=== PATIENT | male | born 1985 | race Caucasian/White ===

== ENCOUNTER 2018-04-23 03:36 | Emergency (ER) | payer OTHER, SELFPAY ==
--- NOTE | 2018-04-23 03:43 | ED.SOB ---
HPI - SOB/Dyspnea General Chief Complaint: Shortness of Breath/Dyspnea Stated Complaint: difficulty breathing, chest pain Time Seen by Provider: 04/23/18 03:39 Source: patient Mode of arrival: ambulatory Limitations: no limitations History of Present Illness Patient presents to the emergency department today with a chief complaint some difficulty with shortness of breath and chest pain off and on for the past week or so. He complains that the pain radiates into his left arm. He is not dizzy nor weak or lightheaded. He denies fever or chills. He denies provocation, palliation of his discomfort. Was recently seen and evaluated at the walk-in clinic for an upper respiratory infection and prescribed azithromycin. He was largely doing better and then develops symptoms again over the day or 2. MD Complaint: shortness of breath, cough, chest pain and anxiety Onset (ago): day(s) Context: recent illness Severity: moderate Consistency/Duration: constant Relieving factors: nothing Exacerbating factors: nothing Related Data Previous Rx's Medication Instructions Recorded azithromycin 250 mg tablet See Label Instructions PO .COMPLEX 04/16/18 #6 tab methylprednisolone 4 mg tablets in See Label Instructions PO PER PKG 04/16/18 a dose pack DIR #21 each Allergies Allergy/AdvReac Type Severity Reaction Status Date / Time No Known Drug Allergies Allergy Verified 04/23/18 04:02 Review of Systems Review of Systems All systems reviewed & are unremarkable except as noted in HPI and below Constitutional Denies chills, Denies fever(s), Denies lethargy and Denies weakness Eyes Denies change in vision, Denies eye discharge, Denies irritation and Denies loss of vision ENT Ears, Nose, Mouth, and Throat: Denies change in voice, Denies neck pain and Denies sore throat Cardiovascular Reports chest pain, Reports rapid heart rate, Denies irregular heart rhythm, Denies lightheadedness, Denies palpitations, Denies dyspnea, Denies dyspnea on exertion and Denies orthopnea Respiratory Denies cough, Denies dyspnea, Denies dyspnea on exertion and Denies wheezing Gastrointestinal Gastrointestinal: Denies abdominal pain, Denies change in bowel habits, Denies diarrhea, Denies nausea and Denies vomiting Musculoskeletal Denies neck pain Neurologic Denies loss of vision and Denies weakness Endocrine Denies palpitations Allergic/Immunologic Denies wheezing [facility] Social History (Reviewed 05/23/18 @ 04:05 by AAKASH Gillespie Smoking Status: Current every day smoker Exam Initial Vital Signs Initial Vital Signs: Vital Signs Temperature 97.8 F 04/23/18 03:50 Pulse Rate 120 H 04/23/18 03:50 Respiratory Rate 18 04/23/18 03:50 Blood Pressure 155/96 H 04/23/18 03:50 Pulse Oximetry 100 04/23/18 03:50 Const General: cooperative, well developed and anxious Nutritional Appearance: well nourished Orientation: alert, awake, oriented x3 and not confused HENMT Head: normocephalic and atraumatic Ears: external ears normal and TM's normal bilaterally Nose: external nose normal and No nasal discharge Face and sinus: sinuses nontender, face symmetric, no sinus tenderness and No dry mucous membranes Mouth: oral mucosae normal and moist mucous membranes Teeth and gingiva: dentition normal Throat: tonsils normal and uvula midline Eyes General: appearance normal, both eyes and all related structures Eyelids: eyelids normal Conjunctivae: conjunctivae normal Sclera: sclerae normal Pupils: PERRL EOM: EOM intact bilaterally Chest Chest: normal inspection of the chest Resp Effort & Inspection: normal respiratory effort, able to speak in complete sentences, no respiratory distress and no use of accessory muscles Auscultation: clear to auscultation bilaterally, no rales, no rhonchi and no wheezes Cardio Rate: tachycardic Rhythm: regular rhythm Heart Sounds: no click, no gallops, no murmurs and no rubs Pulses: normal peripheral pulses GI Inspection: non-distended Palpation: soft, no hepatosplenomegaly, No guarding, No pulsatile mass and No tender Auscultation: normal bowel sounds Back/Spine/Pelvis Back: No CVA tenderness Cervical Spine: cervical ROM normal and No pain with cervical ROM Thoracic/Lumbar Spine: thoracic and lumbar spine normal to inspection Skin General: no rashes or lesions noted, No jaundice and No petechiae Neuro General: alert, oriented x3, gait normal and no focal motor deficits Speech: speech normal Course Orders Ordered: ED Orders 04/23/18 EKG-12 Lead Stat 04/23/18 03:45 Complete Blood Count AUTO DIFF Stat Comprehensive Metabolic Panel Stat D Dimer Stat Lipase Stat Troponin with CK Cardiac Panel Stat 04/23/18 04:00 XR chest 1V Stat Sodium Chloride (Normal Saline 0.9%) 1,000 mls @ 1,000 mls/hr IV CONT HUMERA Last Admin: 04/23/18 04:06 Dose: 1,000 mls/hr Reevaluation(s) Reevaluation #1: HR down to low 90s already Time: 04:27 Vital Signs - 8 hr 04/23/18 03:50 Temperature 97.8 F Pulse Rate 120 H Respiratory Rate 18 Blood Pressure 155/96 H Pulse Oximetry 100 MDM - SOB/Dyspnea Differential Diagnosis Likely acute exacerbation of chronic obstructive airways disease, congestive heart failure, community acquired pneumonia, asthma with exacerbation and pulmonary embolism Medical Records Attestation: I reviewed the patient's medical records. Lab Data Attestation: I reviewed the patient's lab results. Result diagrams: 04/23/18 03:45 04/23/18 03:45 Lab Results 04/23/18 04/23/18 04/23/18 Range/Units 03:45 03:45 03:45 WBC 9.3 (4.5-11.0) X10^3/uL RBC 5.08 (4.5-5.9) X10^6/uL Hgb 15.7 (13.5-17.5) g/dL Hct 44.9 (41-53) % MCV 88.4 (80-100) fL MCH 30.8 (26-34) PG MCHC 34.9 (30-36) % RDW 13.0 (11.6-14.8) % Plt Count 237 (150-400) X10^3/uL Neut % (Auto) 43.6 L (50-75) % Lymph % (Auto) 43.5 H (25-40) % [place] % (Auto) 8.7 (3-14) % Eos % (Auto) 3.4 (2-4) % Baso % (Auto) 0.8 (0-2) % Neut # (Auto) 4000 (0391-8463) /uL D-Dimer < 200 (<231) ng/mL Sodium 144 (137-145) mmol/L Potassium 3.7 (3.4-5.1) mmol/L Chloride 104.0 (98-107) mmol/L Carbon Dioxide 25.0 (22-32) mmol/L BUN 12.0 (9-20) mg/dL Creatinine 0.70 (0.66-1.25) mg/dL Estimated GFR > 60.0 (>60) mL/min BUN/Creatinine Ratio 17.1 (6-22) Glucose 97 (70-100) mg/dL Calcium 9.6 (8.4-10.2) mg/dL Total Bilirubin 0.5 (0.2-1.3) mg/dL AST 23 (17-59) IU/L ALT 30 (21-72) IU/L Alkaline Phosphatase 65 (38-126) U/L Total Creatine Kinase 78 (55-170) U/L Troponin I < 0.012 (0.01-0.034) ng/mL Total Protein 8.6 H (6.3-8.2) g/dL Albumin 4.7 (3.5-5.0) g/dL Globulin 3.9 (1.7-4.1) g/dL Albumin/Globulin Ratio 1.2 (1.0-2.8) Lipase 166 (23-300) U/L Imaging Data Chest x-ray: My impression: NAP ECG Data Attestation: I personally reviewed and interpreted this ECG as follows: Prior ECG tracings: not available for review Interpretation: Normal sinus rhythm with rate of 108. No signs of ectopy. No ST elevations or depressions. No T-wave inversions or hyperacute T. MDM Narrative Medical decision making narrative: Patient's only risk for coronary disease or pulmonary embolism is his history of smoking. Wells score is low probability and we cannot use the perc rule as his heart rate is greater than 100. D-dimer is ordered and negative, no CTA will be ordered. Symptoms present for days with no ischemic change on EKG and normal Troponin. Discharge Plan Departure Clinical Impression: Atypical chest pain Instructions: DI for Atypical Chest Pain Prescriptions: No Action azithromycin 250 mg tablet See Label Instructions PO .COMPLEX Qty: 6 RF: 0 methylprednisolone 4 mg tablets,dose pack See Label Instructions PO PER PKG DIR Qty: 21 RF: 0
[2018-04-23 03:50] VITALS: BP 155/96; PULSE 120; RESP 18; TEMP 36.6; O2SAT 100; BMI 23.8
--- NOTE | 2018-04-23 04:00 | DI.RAD.S_ITS ---
PROCEDURE: XR CHEST 1V INDICATIONS: chest pain TECHNIQUE: One view of the chest was acquired. COMPARISON: None. FINDINGS: Surgical changes and devices: None. Lungs and pleura: No pleural effusions or pneumothorax. Lungs are clear. Mediastinum: Mediastinal contours appear normal. Heart size is normal. Bones and chest wall: No suspicious bony lesions. Overlying soft tissues appear unremarkable. IMPRESSION: No acute disease. Dictated by: Jaxson Hope M.D. on 04/23/2018 at 8:18 Approved by: Jaxson Hope M.D. on 04/23/2018 at 8:21
[2018-04-23] MEDS: SODIUM CHLORIDE 0.9% 1,000 ML 1000 ML IV (04:06)
[2018-04-23 04:08] LABS: Add Manual Diff / Slide Review NO; Basophils Percent Auto 0.8 % (0-2); Eosinophils Percent Auto 3.4 % (2-4); Hematocrit 44.9 % (41-53); Hemoglobin 15.7 g/dL (13.5-17.5); Lymphocytes Percent Auto 43.5 % (25-40); Mean Corpuscular HGB Conc 34.9 % (30-36); Mean Corpuscular Hemoglobin 30.8 PG (26-34); Mean Corpuscular Volume 88.4 fL (80-100); Monocytes Percent Auto 8.7 % (3-14); Neutrophils Absolute Auto 4000 /uL (3000-5900); Neutrophils Percent Auto 43.6 % (50-75); Platelet Count 237 X10^3/uL (150-400); Red Blood Cell Count 5.08 X10^6/uL (4.5-5.9); White Blood Cell Count 9.3 X10^3/uL (4.5-11.0)
[2018-04-23 04:16] LABS: Alanine Aminotransferase 30 IU/L (21-72); Albumin 4.7 g/dL (3.5-5.0); Albumin Globulin Ratio 1.2 (1.0-2.8); Alkaline Phosphatase 65 U/L (38-126); Aspartate Aminotransferase 23 IU/L (17-59); BUN Creatinine Ratio 17.1 (6-22); Bilirubin Total 0.5 mg/dL (0.2-1.3); Calcium 9.6 mg/dL (8.4-10.2); Creatine Kinase 78 U/L (55-170); Estimated Glomerular Filt Rate > 60.0 mL/min (>60); Globulin 3.9 g/dL (1.7-4.1); Glucose 97 mg/dL (70-100); HEMOLYSIS 16 (0-50); Lipase 166 U/L (23-300); Potassium 3.7 mmol/L (3.4-5.1); Sodium 144 mmol/L (137-145); Total Protein 8.6 g/dL (6.3-8.2)
[2018-04-23 04:19] LABS: D Dimer < 200 ng/mL (<231)
[2018-04-23 04:27] LABS: Troponin I < 0.012 ng/mL (0.01-0.034)
[2018-04-23 04:44] VITALS: BP 136/87; PULSE 86; RESP 15; O2SAT 99
== END 2018-04-23 04:50 | disposition home or self-care (01) ==
PROVIDERS: Emergency Provider Emergency Medicine; PCP Physician Assistant
DX: R07.89 Other chest pain (principal)
CPT/HCPCS: 36591; 71045; 80053; 82550; 82553; 83690; 84484; 85025; 85379; 93005; 93041; 96360; 99283; 99285

== ENCOUNTER → 2018-04-30 18:48 | Outpatient (CLI) | payer OTHER, SELFPAY ==
[2018-04-30 21:46] LABS: Urine Chlamydia Not Detected; Urine N gonorrhoeae Not Detected
== END ==
PROVIDERS: PCP Physician Assistant; Visit Provider Physician Assistant
DX: Z11.3 Encounter for screening for infections with a predominantly sexual mode of transmission (principal)
CPT/HCPCS: 87491; 87591

== ENCOUNTER → 2018-05-10 08:02 | Outpatient (CLI) | payer OTHER, SELFPAY ==
[2018-05-10 10:51] LABS: HIV 1 and 2 Antibody NEGATIVE (NEGATIVE)
== END ==
PROVIDERS: PCP Physician Assistant; Visit Provider Physician Assistant
DX: Z11.3 Encounter for screening for infections with a predominantly sexual mode of transmission (principal)
CPT/HCPCS: 36415; 86703

== ENCOUNTER 2018-05-18 03:44 | Emergency (ER) | payer OTHER, SELFPAY ==
[2018-05-18 03:55] VITALS: BP 155/85; PULSE 110; RESP 18; TEMP 36.6; O2SAT 99; BMI 22.6
[2018-05-18 04:19] LABS: Appearance Urine UA CLEAR; Bacteria Urine None Seen; Bilirubin Urine UA NEGATIVE (NEGATIVE); Glucose Urine UA NEGATIVE (Normal); Ketones Urine UA NEGATIVE (NEGATIVE); Leukocyte Esterase Urine UA NEGATIVE (NEGATIVE); Nitrite Urine UA Negative (Negative); Occult Blood Urine UA NEGATIVE (Negative); Protein Urine UA NEGATIVE (Negative); RBC Urine None Seen (0-5/HPF); Specific Gravity Urine UA <=1.005 (1.000-1.035); Urobilinogen Urine UA 0.2 E.U./dL (0.2); pH Urine UA 6.5 (4.5-8.0)
[2018-05-18 04:20] LABS: Color Urine UA Straw
[2018-05-18 04:26] LABS: Culture Indicated Urine Cult Not Indicated; Urine Comments Microscopic Normal; WBC Urine 0-1/HPF (0-5/HPF)
--- NOTE | 2018-05-18 04:47 | ED.MALEGU ---
HPI - Male Genitourinary General Chief complaint: Urogenital-Male Stated complaint: BLOOD IN SEMEN AFTER INTERCOURSE Time Seen by Provider: 05/18/18 03:50 History of Present Illness HPI Narrative: HPI 33-year-old male presents for evaluation of hematospermia that he noticed when he pulled out while finishing intercourse shortly prior to arrival. Patient denies dysuria, similar prior symptoms, pain on stooling. Patient reports that he had a unremarkable STI screening one week ago. Patient denies penile discharge. No genital lesions. M/S/F/SocHx notable for: please see HPI; remainder reviewed with patient and in chart. ROS: Negative constitutional, eye, cardiovascular, pulmonary, GI, , MSK, skin, neurologic, psychiatric, endocrine unless noted in the HPI. Exam Gen: Pleasant, non-toxic appearing, resting comfortably. HEENT: NC, AT, PEERL, EOMI. Resp: Clear to auscultation bilaterally, normal work of breathing, no accessory muscle usage. Card: Regular rate and rhythm with no murmurs, rubs, or gallops, extremities warm and well perfused. GI: nontender throughout all quadrants, no rebound, no guarding. : No suprapubic tenderness to palpation. Visually normal circumcised male genitalia, bilateral testes and epididymis, scrotum, and penis non-tender to palpation and without palpable abnormalities bilaterally. No discharge or lesions appreciated. No visual bulging in the inguinal crease bilaterally both at rest and with valsalva, no palpable protuberance to palpation in the inguinal canals bilaterally. MSK: No visible deformities, strength and tone without visually appreciable deficit. Skin: Normal color with no visible lesions. Neuro: AO x 3, no facial asymmetry, vision and hearing WNL. Psych: Mood and affect appropriate. Labs / Imaging: UA - negative nitrate, negative leukocyte esterase, no bacteria. GC pending MDM Previous chart, nursing note, labs, imaging, and vitals reviewed. A/P: 33-year-old male presents for evaluation of hematospermia that he noticed when he pulled out while finishing intercourse shortly prior to arrival. Although the differential diagnosis further reported hematospermia is broad, the patient is without identifiable risk factors on history or exam with respect to tumors, history is without clear evidence of a prostatic disorder, in the patient's reportedly unremarkable - and apparently clinically relevant - recent negative STI screening as well as interval history without urethral discharge or discomfort makes STI less likely. GC pending. UA without evidence of infection. As most cases of hematospermia resolved spontaneously patient was given reassurance, return to care precautions, and will follow up with his PCP for further evaluation is needed. Impression: hematospermia (please reference below for remainder of encounter information) Related Data Home Medications Medication Instructions Recorded Confirmed No Known Home Medications 04/23/18 04/23/18 Allergies Allergy/AdvReac Type Severity Reaction Status Date / Time No Known Drug Allergies Allergy Verified 04/23/18 04:02 [facility] Social History Smoking Status: Current every day smoker Exam Initial Vital Signs Initial Vital Signs: Vital Signs Temperature 97.8 F 05/18/18 03:55 Pulse Rate 110 H 05/18/18 03:55 Respiratory Rate 18 05/18/18 03:55 Blood Pressure 155/85 H 05/18/18 03:55 Pulse Oximetry 99 05/18/18 03:55 Course Orders Ordered: ED Orders 05/18/18 04:05 Urinalysis and Microscopic Stat Urine Chlamydia Gonorrhea PCR Stat Vital Signs - 8 hr 05/18/18 03:55 Temperature 97.8 F Pulse Rate 110 H Respiratory Rate 18 Blood Pressure 155/85 H Pulse Oximetry 99 MDM - Male Genitourinary Lab Data Lab Results 05/18/18 Range/Units 04:05 Urine Color Straw Urine Appearance Clear Urine pH 6.5 (4.5-8.0) Ur Specific [place] <=1.005 (1.000-1.035) Urine Protein Negative (Negative) Urine Glucose (UA) Negative (Normal) g/dL Urine Ketones Negative (NEGATIVE) Urine Occult Blood Negative (Negative) Urine Nitrate Negative (Negative) Urine Bilirubin Negative (NEGATIVE) Urine Urobilinogen 0.2 (0.2) E.U./dL Ur Leukocyte Esterase Negative (NEGATIVE) Urine RBC None seen (0-5/HPF) Urine WBC 0-1/hpf (0-5/HPF) Urine Bacteria None seen (None) Ur Culture Indicated? Cult not indicated Micro UA Comment Microscopic normal Discharge Plan Departure Prescriptions: No Action No Known Home Medications RF: 0
[2018-05-18 05:16] VITALS: BP 145/80; PULSE 80; RESP 16; O2SAT 99
[2018-05-18 05:47] LABS: Urine N gonorrhoeae NOT DETECTED
[2018-05-18 05:49] LABS: Urine Chlamydia NOT DETECTED
== END 2018-05-18 05:17 | disposition home or self-care (01) ==
PROVIDERS: Emergency Provider Emergency Medicine; PCP Physician Assistant
DX: R36.1 Hematospermia (principal)
CPT/HCPCS: 81001; 87491; 87591; 99282; 99283

== ENCOUNTER → 2021-03-31 12:30 | Outpatient (CLI) | payer OTHER, SELFPAY ==
[2021-03-31 13:08] LABS: COVID19 -Nasal RAPID POSITIVE (Negative)
[2021-03-31 13:34] LABS: Influenza A - CEPHEID Flu A NEGATIVE (NEGATIVE); Influenza B - CEPHEID Flu B NEGATIVE (NEGATIVE)
== END ==
PROVIDERS: Visit Provider Student in an Organized Health Care Education/Training Program
DX: U07.1 COVID-19 (principal)
CPT/HCPCS: 87502; 87635